=== PATIENT | male | born 1955 | race Caucasian/White ===

== ENCOUNTER → 2017-11-07 | Outpatient (CLI) | payer OTHER ==
[~2017-11-07] MED LIST: ADVAIR IN; AMBIEN CR12.5 MG PO; ASPIRIN325 MG PO; CALCIUM600 MG PO; CENTRUM SILVER1 EAC3 PO; DEXILANT60 MG PO; DYAZIDE 37.5-21 EACH PO; LYRICA200 MG PO; POTASSIUM GLUCONATE PO; SPIRIVA18 MCG INH; ZOCOR40 MG PO; ZOVIRAX400 MG PO
--- NOTE | 2017-11-07 19:12 | Diagnostic Imaging Report ---
PROCEDURE: CT CHEST WITHOUT CONTRAST CT scan of the chest WITHOUT intravenous contrast, using standard protocol. TECHNIQUE: The chest was scanned utilizing a multidetector helical scanner from the apex to the level of the adrenal glands. No IV contrast was administered per physician's request. Coronal and sagittal multiplanar reformations were obtained. COMPARISON: Patients [facility], CT, CT CHEST WO, 10/02/2016, 12:17. INDICATIONS: ABNORMAL CHEST XRAY FINDINGS: Lines/tubes: None. Lungs and Airways: Stable 1.3 x 1.2 cm well-circumscribed solid nodule in the right lower lobe (series 3, image 83). Stable 1.0 x 0.8 cm solid well-circumscribed nodule in the lateral left lower lobe (series 3, image 79). No other pulmonary nodules. No masses or consolidation. Stable mild to moderate bilateral centrilobular emphysematous changes, worse in the upper lobes. Airways are clear, without endobronchial lesions. Pleura: No effusion, or pneumothorax. Heart and mediastinum: The thyroid gland is normal. The heart and pericardium are within normal limits. Mild atherosclerotic calcification of the aortic valves, coronary arteries and thoracic aortic arch. Main pulmonary artery is normal in caliber. Lymph nodes: No mediastinal, hilar, or axillary adenopathy. Abdomen: Limited views of the upper abdomen show no abnormality within the visualized spleen, pancreas, or kidneys. 1.2 cm calcified stone in the gallbladder lumen. 1.1, 1.2 x 1.3 cm hypodense fluid density lesions in hepatic segment IVB (series 2, images 130, 133 and 134) likely representing simple cysts. Stable mild diffuse thickening of the adrenal glands, without focal lesions. Bones: No aggressive lytic lesions. IMPRESSION: 1. Stable 1.3 cm solid nodule in the right lower lobe and 1.0 cm solid nodule in the left lower lobe. Consider PET CT for further evaluation. Recommend followup noncontrast CT chest low dose nodule protocol in 12 months to document stability per Fleischner Society 2017 guidelines, given the high risk status. Morales Sun M.D. Dictated by: Morales Sun M.D. on 11/07/2017 at 19:16 Electronically approved by: Morales Sun M.D. on 11/07/2017 at 19:16
== END ==
LOC: CT 13:38
PROVIDERS: ATTEND Family Medicine
DX: R93.8 Abnormal findings on diagnostic imaging of other specified body structures (principal)
CPT/HCPCS: 71250

== ENCOUNTER → 2018-08-05 | Day surgery (SDC) | payer MEDICARE, OTHER ==
[~2018-08-05] MED LIST changes: +BYSTOLIC10 MG PO; +FENTANYL CITRATE/PF 100MCG/2 ML INJ ONE; +FLOMAX0.4 MG PO; +HYDROCHLOROTHIA25 MG PO; +LOSARTAN POTAS100 MG PO; +MIDAZOLAM HCL 2 MG/2 ML VIAL ONE; +OR PHACO EYE KIT ONE; +PREOP PHACO EYE KIT ONE; +PROAIR HFA INH8.5 GM INH; +VITAMIN B-121000 MCG PO
--- OUTSIDE RECORDS SUMMARY | 2018-08-05 09:22 | XMS REPORT ---
Author Author [facility] Address Unknown Phone Unavailable Care Team Providers Care Editorial Assistant Name Role Phone YOLA JO ANN Unavailable Unavailable Problems This patient has no known problems. Allergies, Adverse Reactions, Alerts This patient has no known allergies or adverse reactions. Medications This patient has no known medications. Results Test Description Test Time Test Comments Text Results Atomic Results Result Comments CT CHEST WO 2017-11-07 19:17:00 [place] [address] Patient Name: FAYE CORTEZ MR #: [id number] : 1955 Age/Sex: 62/M Req #: [id number] Adm Physician: Ordered by: JO ANN ACEVES DO Report #: [id number] Location: CT Room/Bed: Procedure: [id number] CT/CT CHEST WO Exam Date: 11/07/17 Exam Time: 1440 REPORT STATUS: Signed PROCEDURE: CT CHEST WITHOUT CONTRAST CT scan of the chest WITHOUT intravenous contrast, using standard protocol. TECHNIQUE: The chest was scanned utilizing a multidetector helical scanner from the apex to the level of the adrenal glands. No IV contrast was administered per physician's request. Coronal and sagittal multiplanar reformations were obtained. COMPARISON: [facility], CT, CT CHEST WO, 10/02/2016, 12:17. INDICATIONS: ABNORMAL CHEST XRAY FINDINGS: Lines/tubes: None. Lungs and Airways: Stable 1.3 x 1.2 cm well-circumscribed solid nodule in the right lower lobe (series 3, image 83). Stable 1.0 x 0.8 cm solid well- circumscribed nodule in the lateral left lower lobe (series 3, image 79). No other pulmonary nodules. No masses or consolidation. Stable mild to mod erate bilateral centrilobular emphysematous changes, worse in the upper lobes. Airways are clear, without endobronchial lesions. Pleura: No effusion, or pneumothorax. Heart and mediastinum: The thyroid gland is normal. The heart and pericardium are within normal limits. Mild atherosclerotic calcification of the aortic valves, coronary arteries and thoracic aortic arch. Main pulmonary artery is normal in caliber. Lymph nodes: No mediastinal, hilar, or axillary adenopathy. Abdomen: Limited views of the upper abdomen show no abnormality within the visualized spleen, pancreas, or kidneys. 1.2 cm calcified stone in the gallbladder lumen. 1.1, 1.2 x 1.3 cm hypodense fluid density lesions in hepatic segment IVB (series 2, images 130, 133 and 134) likely representing simple cysts. Stable mild diffuse thickening of the adrenal glands, without focal lesions. Bones: No aggressive lytic lesions. IMPRESSION: 1. Stable 1.3 cm solid nod ule in the right lower lobe and 1.0 cm solid nodule in the left lower lobe. Consider PET CT for further evaluation. Recommend followup noncontrast CT chest low dose nodule protocol in 12 months to document stability per Fleischner Society 2017 guidelines, given the high risk status. Carine Sun M.D. Dictated by: Carine Sun M.D. on 11/07/2017 at 19:16 Electronically approved by: Carine Sun M.D. on 11/07/2017 at 19:16 Dictated By: CARINE SUN MD 16 Transcribed By: Keturah DIAZ on 11/07/171916 COPY TO: JO ANN ACEVES DO
[2018-08-05 12:00] VITALS: BP 140/62
== END | disposition home or self-care (01) ==
LOC: OR 09:20
PROVIDERS: ATTEND Ophthalmology
DX: H25.11 Age-related nuclear cataract, right eye (principal); J44.9 Chronic obstructive pulmonary disease, unspecified; G47.33 Obstructive sleep apnea (adult) (pediatric); I10 Essential (primary) hypertension; K21.9 Gastro-esophageal reflux disease without esophagitis
CPT/HCPCS: 66984; J2250; V2788

== ENCOUNTER → 2018-08-19 | Day surgery (SDC) | payer MEDICARE, OTHER ==
[~2018-08-19] MED LIST changes: +EPINEPHRINE HCL 1:1000 1ML 1 MG/ML AMP ONE
[2018-08-19 13:30] VITALS: BP 139/89
== END | disposition home or self-care (01) ==
LOC: OR 10:41
PROVIDERS: ATTEND Ophthalmology
DX: H25.12 Age-related nuclear cataract, left eye (principal); G47.33 Obstructive sleep apnea (adult) (pediatric); J44.9 Chronic obstructive pulmonary disease, unspecified; I10 Essential (primary) hypertension; Z87.891 Personal history of nicotine dependence
CPT/HCPCS: 66984; J0171; J2250

== ENCOUNTER → 2018-09-24 | Outpatient (CLI) | payer MEDICARE, OTHER ==
[~2018-09-24] MED LIST changes: -EPINEPHRINE HCL 1:1000 1ML 1 MG/ML AMP ONE; -FENTANYL CITRATE/PF 100MCG/2 ML INJ ONE; -MIDAZOLAM HCL 2 MG/2 ML VIAL ONE; -OR PHACO EYE KIT ONE; -PREOP PHACO EYE KIT ONE
--- NOTE | 2018-09-24 11:08 | Diagnostic Imaging Report ---
EXAMINATION: CT scan of the chest without contrast. TECHNIQUE: Spiral CT images of the chest were performed from the lung apices to the level of the adrenal glands. No intravenous contrast was administered per referring physician request. Coronal and sagittal reformatted images were obtained. COMPARISON: 11/07/2017 CLINICAL HISTORY:Nodule DISCUSSION: ABSENCE OF INTRAVENOUS CONTRAST DECREASES SENSITIVITY FOR DETECTION OF FOCAL LESIONS AND VASCULAR PATHOLOGY. LINES/TUBES: None. LUNGS AND AIRWAYS: Unchanged 1.3 x 1.2 cm well-circumscribed round solid nodule in the right lower lobe (series 3 image 80). Unchanged 1.0 x 0.8 cm solid, well-circumscribed nodule in the lateral segment of the left lower lobe (also series 3, image 80). Unchanged moderate centrilobular emphysematous changes, upper lobe predominant. No additional suspicious pulmonary nodules. Groundglass and reticular opacities in the dependent lower lobes, right greater than left, compatible with subsegmental atelectasis. Trachea, mainstem bronchi, and central lobar and segmental bronchi are patent, without filling defect. PLEURA: No pneumothorax or pleural effusions. HEART AND MEDIASTINUM: Visualized portions of the thyroid gland appear normal. Atherosclerotic calcification of the aortic arch and great vessel origins. 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 This is unchanged compared to 11/07/2017. Pulmonary outflow tract is of normal caliber. No pericardial effusion. H LYMPH NODES: There is no mediastinal, hilar or axillary lymphadenopathy. ABDOMEN: Unchanged probable simple cyst in hepatic segment 2. Otherwise Visualized portions of the liver, spleen, pancreas, and adrenals are unremarkable. Radiopaque calculus at the neck of the gallbladder unchanged. BONES AND SOFT TISSUES: No osseous destructive lesions. Multilevel degenerative disc changes of the lower cervical and thoracic spine. IMPRESSION: Continued stability of 1.3 cm solid right lower lobe nodule and 1.0 cm solid left lower lobe nodule. An additional one-year follow-up CT scan of the chest without contrast is suggested to document 3 years of stability (index CT performed 10/02/2016). Upper lobe predominant emphysematous changes. Cholelithiasis. 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 Signed by: Dr. Manan Garza M.D. on 09/24/2018 11:05 AM
== END ==
LOC: CT 09:35
PROVIDERS: ATTEND Internal Medicine Critical Care Medicine
DX: R91.8 Other nonspecific abnormal finding of lung field (principal)
CPT/HCPCS: 71250

== ENCOUNTER → 2019-09-22 | Outpatient (CLI) | payer MEDICARE, OTHER ==
--- NOTE | 2019-09-22 11:52 | Diagnostic Imaging Report ---
EXAM: CT Chest without intravenous contrast HISTORY: ^[id number] ^1045 ^PULMONARY NODULE COMPARISON: Multiple chest CTs dating back to 2017 TECHNIQUE: CT of the chest without intravenous contrast. Coronal and sagittal reformations were obtained. DOSE REDUCTION: The examination was performed according to the departmental dose-optimization program, which includes automated exposure control, adjustment of the mA and/or kV according to patient size and/or use of iterative reconstruction technique. IMPRESSION: The absence of intravenous contrast decreases the sensitivity for detection of focal lesions and vascular pathology. 1. Right lower lobe lung solid nodule has increased in size and now measures 1.7 cm, previously 1.5 cm in 2019 and 1.3 cm in 2017. Recommend biopsy. 2. Left lower lobe solid lung nodule measures 1 cm. No follow-up is indicated if the contralateral lung lung nodule is benign, given 3 years of stability. 3. Additional findings are stable compared to the prior study. Signed by: Artem Zhang MD on 09/22/2019 11:49 AM
== END ==
LOC: CT 10:16
PROVIDERS: ATTEND Internal Medicine Critical Care Medicine
DX: R91.8 Other nonspecific abnormal finding of lung field (principal)
CPT/HCPCS: 71250

== ENCOUNTER → 2019-10-14 | Outpatient (CLI) | payer MEDICARE, OTHER ==
[2019-10-14] VITALS (10 sets, daily range): BP systolic 98–117; BP diastolic 50–77
[~2019-10-14] MED LIST changes: +FENTANYL CITRATE/PF 100MCG/2 ML INJ ONE; +MIDAZOLAM HCL 2 MG/2 ML VIAL ONE
[2019-10-14 08:27] LABS: HEMOGLOBIN 14.2 g/dL (14.0-18.0)
[2019-10-14 08:47] LABS: INR 0.96; PARTIAL THROMBOPLASTIN TIME 30.5 seconds (23.8-35.5); PROTHROMBIN TIME 13.3 seconds (11.9-14.5)
--- NOTE | 2019-10-14 10:37 | NUR ---
1037am RECEIVING NOTE RECOVERY DEPT............................................................... Bedside report received from SANDRA Noriega(Rad Nurse). Identifierx2. Alert oriented and appropriate, PERRLA, respirations even and unlabored to room air.95% Pulses x4 extremities equal and strong.Cap fill brisk < 3 sec. Left lung band-aid dry and intact .No s/s SOB, bleeding or hematoma. Skin warm and dry integrity appears. IV 20g to left hand presents healthy w/o s/s of infiltration or complaint. Abdomen soft and supple. Pt offered toileting, denies need to urinate or defecate. No personal affects with patient. Rad Nurse attempted contact with Family status report. Currently w/o complaint of pain or need. Call light bedside. Bed in low position. Side rail up. 1st Cxr due at 1130.Second at 1330pm. No gross issues pain,pallor pressure or dysrhythmia. NPO at this time in supine position hilton Addendum: 10/14/19 at 1251 by Georgiana Bonilla RN 1037am addendum: It was clarified with technologist scan and in person that contralateral approach done and rt lung biopsy was performed successfully. Specimens to lab per Pathology team and Pathologist Dr. Moreira. hilton
--- NOTE | 2019-10-14 11:29 | NUR ---
1130a notified Shivam xray technologist of CXR due now ,pt located in room #9 CCL recovery area. ds/rn
--- NOTE | 2019-10-14 11:35 | NUR ---
1135 1st CXR completed report Gallo FLORES NO s/s distress stable vs sinus colby NO gross issues pain,pallor,pressure or dysrhythmia.ds/rn
--- NOTE | 2019-10-14 12:11 | Diagnostic Imaging Report ---
EXAMINATION: CHEST SINGLE (PORTABLE) INDICATION: Postprocedural COMPARISON: CT-guided lung biopsy of the same day FINDINGS: LINES/TUBES:EKG leads overlie the chest. LUNGS:The lungs are well-inflated. No focal consolidation or pulmonary edema. PLEURA:No pleural effusion or pneumothorax. MEDIASTINUM:The cardiomediastinal silhouette appears normal in size and shape. BONES/SOFT TISSUES:No acute osseous injury. ABDOMEN:No free air under the diaphragm. IMPRESSION: No pneumothorax status post right lung biopsy. Signed by: Lovely Castro MD on 10/14/2019 12:08 PM
--- NOTE | 2019-10-14 12:15 | NUR ---
1215 Radiologist read 1st CXR no pneumothorax ok to eat.Tolerated po intake w/o incident. Phoned number associated with ride. Selene (daughter Pt ok'd to leave message for probable pickup time)[phone]. CCL nsg. station phone number and nurse name left on answering machine. Pt remains in no distress. NO gross issues pain,pallor pressure or dysrhythmia.Back to baseline orientation denies necessity to defecate or urinate.Next CXR due at 1330pm. ds/rn
--- NOTE | 2019-10-14 13:30 | NUR ---
1330 2nd Cxr done Continues to have no gross issues pain,pallor, pressure or dysrhythmia. Pt states daughter to berry picker pt at 1345pm ds/rn
--- NOTE | 2019-10-14 14:30 | NUR ---
1430pm RECOVERY DISCHARGE NURSING NOTE Pt meets DC criteria. assessed for s/s of complication and presence of hematoma. Skin warm, dry, no discolor, and pulses present. IV removed from left hand Distal tip appears intact. VS WNL. Pt denies pain, sob, or need at this time.Posterior banddaid dressing dry and intact. Pt awre of f/o care per instructions from Leann FLORESbatch still operator nurse. Family at arrived at [facility]. Pt has follow up instructions and verbalized understanding. Pt to car with wheelchair and transported to front of hospital. Transferred to private vehicle under own strength w/o incident with DC paperwork in hand. ds/rn -
--- NOTE | 2019-10-14 14:47 | Diagnostic Imaging Report ---
PROCEDURE: CT-guided biopsy Procedural Personnel Attending physician(s): Lovely Castro MD Fellow physician(s): None Resident physician(s): None Advanced practice provider(s): None Pre-procedure diagnosis: Lung nodule Post-procedure diagnosis: Same Indication: Histopathologic diagnosis Previous biopsy of same target (QCDR): No Additional clinical history: None Complications: No immediate complications. IMPRESSION: CT-guided biopsy of right lower lobe pulmonary nodule. Plan: Specimen(s) sent for evaluation. PROCEDURE SUMMARY: - Percutaneous CT-guided coaxial core needle and fine needle aspiration biopsy biopsy - Additional procedure(s): None PROCEDURE DETAILS: Pre-procedure Reference imaging for biopsy target: Chest CT 09/22/2019 Consent: Informed consent for the procedure including risks, benefits and alternatives was obtained and time-out was performed prior to the procedure. Preparation: The site was prepared and draped using maximal sterile barrier technique including cutaneous antisepsis. Anesthesia/sedation Level of anesthesia/sedation: Moderate sedation (conscious sedation) 2mg Versed, 100mcg Fentanyl Anesthesia/sedation administered by: Independent trained observer under attending supervision with continuous monitoring of the patient?s level of consciousness and physiologic status Total intra-service sedation time (minutes): 60 Imaging prior to biopsy The patient was positioned prone. Initial imaging was performed using noncontrast CT. Biopsy target: - Maximal diameter (cm): 1.6 - Location: Right lower lobe Other findings: None Biopsy Local anesthesia was administered. Under CT guidance, the biopsy needle was advanced to the target and biopsy was performed. Coaxial needle: 19 gauge Core needle biopsy device: Fileboard Core needle size: 20 gauge Number of core specimens: 4 Fine needle aspiration device: Chiba Fine needle size: 22g Number of FNA specimens: 3 On-site biopsy touch preparation: Yes Additional sampling recommendations: None Preliminary assessment of sample adequacy: Adequate Needle removal The biopsy needle was removed and a sterile dressing was applied. Tract embolization: None Imaging following biopsy Immediate post-biopsy imaging was performed using noncontrast CT. Post-biopsy imaging findings: Tiny posterior pneumothorax. Contrast Contrast agent: None Contrast volume (mL): [address] dose length product (mGy-cm): 3530 Additional Details Additional description of procedure: None Equipment details: None Specimens removed: Biopsy samples as detailed above Estimated blood loss (mL): Less than 10 Standardized report: [id number] Attestation Signer name: Loveyl Castro MD I attest that I was present for the entire procedure. I reviewed the stored images and agree with the report as written. Signed by: Lovely Castro MD on 10/14/2019 2:43 PM
--- NOTE | 2019-10-15 11:03 | NUR ---
attempted to make followup call no answer
--- NOTE | 2019-10-15 11:07 | NUR ---
patient called back. having no problems in fact went for a walk last pm. no sob or chest pain. will call md for followup. was very appreciative of care and concern we gave him
== END ==
LOC: CT 07:35
PROVIDERS: ATTEND Internal Medicine Critical Care Medicine
DX: R91.8 Other nonspecific abnormal finding of lung field (principal); Z11.59 Encounter for screening for other viral diseases
CPT/HCPCS: 10009; 32405; 36415; 71045; 85014; 85049; 85610; 85730; 87635; 88172; 88173; 88305; J2250; J3010; 88312; 99152; 99153

== ENCOUNTER → 2022-10-11 | Day surgery (SDC) | payer MEDICARE, BC ==
[2022-10-09 13:01] LABS: BASOPHILS # (AUTO) 0.1 (0.0-0.1); BASOPHILS % 0.7 % (0.0-1.0); EOSINOPHILS % 10.6 % (0.0-6.0); HEMATOCRIT 43.3 % (38.2-49.6); HEMOGLOBIN 14.5 g/dL (14.0-18.0); LYMPHOCYTES # (AUTO) 1.7 (1.0-3.2); LYMPHOCYTES % 17.6 % (18.0-39.1); MEAN CORPUSCULAR HEMOGLOBIN 30.3 pg (28-32); MEAN CORPUSCULAR HGB CONC 33.5 g/dL (31-35); MEAN CORPUSCULAR VOLUME 90.6 fL (81-99); MONOCYTES # (AUTO) 0.9 (0.2-0.8); MONOCYTES % 9.7 % (4.4-11.3); NEUTROPHILS # (AUTO) 5.7 (2.1-6.9); PLATELET COUNT 185 x10e3/uL (140-360); RED BLOOD COUNT 4.78 x10e6/uL (4.3-5.7); RED CELL DISTRIBUTION WIDTH 13.1 % (11.7-14.4)
[2022-10-09 13:15] LABS: INR 0.95; PROTHROMBIN TIME 13.2 seconds (11.9-14.5)
[2022-10-09 13:24] LABS: ALBUMIN 3.5 g/dL (3.5-5.0); ALBUMIN/GLOBULIN RATIO 1.1 (0.8-2.0); ANION GAP 12.8 mmol/L (8-16); CALCIUM 8.8 mg/dL (8.4-10.2); CHOL/HDL RATIO 3.9 (3.9-4.7); CREATININE, SERUM 1.39 mg/dL (0.72-1.25); POTASSIUM 3.8 mmol/L (3.5-5.1)
[~2022-10-11] VITALS: Ht 185.4 cm; Wt 145.1 kg
[2022-10-11] VITALS (10 sets, daily range): BP systolic 113–134; BP diastolic 66–96; PULSE 62–72; RESP 14–18; TEMP 97.4; O2SAT 92–97
[~2022-10-11] MED LIST changes: +FLONASE ALLERG9.9 ML INH; +HEPARIN SOD (PORCINE) 1000 UNIT/ML 30ML ONE; +HEPARIN SOD/SOD CHLORIDE 2,000 ML ONE; +IOPAMIDOL 370 MG/ML 100 ML INFUS..BTL INJ ONE; +LASIX40 MG PO; +LIDOCAINE HCL 2% LOCAL 20 ML VIAL ONE; +LYRICA150 MG PO; +NITROGLYCERIN/D5W 200 MCG/ML 250 ML ONE; +OMEPRAZOLE40 MG PO; +POTASSIUM CHLO20 ME1 PO; +SODIUM CHLORIDE 0.9% 1000ML 1,000 ML ONE; +VERAPAMIL HCL 2.5 MG/ML 2 ML VIAL ONE
== END | disposition home or self-care (01) ==
LOC: CATH LAB 13:07
PROVIDERS: ATTEND Internal Medicine Cardiovascular Disease
DX: I25.118 Atherosclerotic heart disease of native coronary artery with other forms of angina pectoris (principal); R94.39 Abnormal result of other cardiovascular function study; I10 Essential (primary) hypertension; I87.2 Venous insufficiency (chronic) (peripheral); I65.23 Occlusion and stenosis of bilateral carotid arteries; I73.9 Peripheral vascular disease, unspecified; E78.5 Hyperlipidemia, unspecified; E66.9 Obesity, unspecified; Z01.812 Encounter for preprocedural laboratory examination; Z79.82 Long term (current) use of aspirin; Z79.899 Other long term (current) drug therapy; Z68.41 Body mass index [BMI] 40.0-44.9, adult
CPT/HCPCS: 36415; 80053; 80061; 85025; 85610; 93458; C1887 ×2; J2001; J2250; J3010; J7030; Q9967; 99152; J1644